=== PATIENT | female | born 1940 | race Two or more races ===

== ENCOUNTER 2017-01-16 16:15 | Emergency (ER) | payer MEDICARE, OTHER ==
[~2017-01-16] VITALS: Ht 170.2 cm; Wt 71.2 kg
[~2017-01-16 16:15] MED LIST: AZITHROMYCIN250 MG; CYMBALTA20 MG; CYMBALTA30 MG ORAL; DEXILANT60 MG ORAL; DILTIAZEM 24HR120 M1; FLONASE1 SPRAYS; PHENAZOPYRIDIN100 MG ORAL; RANITIDINE HCL150 M2; RESTASIS1 EACH BOTH EYES; ROPINIROLE HCL3 MG; TENORMIN100 MG ORAL; TOVIAZ8 MG PO; ZOLPIDEM TARTRAT5 MG
[2017-01-16 16:31] VITALS: BP 135/73
[2017-01-16] MEDS ORDERED: Lidocaine 1% 10mg/ml/Epi 0.005mg/ml 30ml vial INJ ONE (17:30)
--- NOTE | 2017-01-16 18:17 | Emergency Room Report ---
History of Present Illness General Chief Complaint: Skin Rash/Abscess Source: Patient Present Illness HPI 76 Yo female presents to the ED c/o pain, swelling, and erythema of right hip x 1 week. progressive in size. pt rates 10/10 localized tenderness. She denies fevers, chills, immunocompromise, trauma or fall. Patient has not taken any medication for her symptoms daughter has been washing daily with hibicleanse and applying antibiotic ointment. Erythema has continued to progress, and there is purulent drainage seeping through the skin. Denies CP, Palpitations, LOC, AMS, dizziness, Changes in Vision, Sensation, paresthesias, or a sudden severe headache. Allergies: Coded Allergies: HYDROCODONE (Unverified Allergy, Intermediate, 11/05/13) CODEINE (Verified Allergy, Mild, HIVES, 03/29/11) SULFAMETHOXAZOLE (Verified Allergy, Mild, 06/21/10) TRIMETHOPRIM (Verified Allergy, Mild, 06/21/10) METHOCARBAMOL (Verified Allergy, Unknown, 01/16/17) ASPIRIN (Verified Adverse Reaction, Unknown, UPSET STOMACH, 05/16/11) Patient History Past Medical History: see triage record Past Surgical History: none Pertinent Family History: none Now: No Immunizations: UTD Reviewed Nursing Documentation: PMH: Agreed, PSxH: Agreed Nursing Documentation-PMH Past Medical History: No History, Except For Hx Cardiac Problems: Yes Hx Hypertension: Yes Hx Cancer: Yes Hx Gastrointestinal Problems: No Hx Neurological Problems: No Review of Systems All Other Systems: negative except mentioned in HPI Physical Exam Vital Signs Date Time Temp Pulse Resp B/P Pulse Ox O2 Delivery O2 Flow Rate FiO2 01/16/17 16:31 97.9 79 16 135/73 97 Room Air Sp02 EP Interpretation: reviewed, normal General Appearance: no apparent distress, alert, GCS 15, non-toxic Head: normocephalic, atraumatic Eyes: bilateral eye PERRL, bilateral eye normal inspection ENT: hearing grossly normal, normal pharynx, no angioedema, normal voice Neck: full range of motion, supple/symm/no masses Respiratory: chest non-tender, lungs clear, normal breath sounds, speaking full sentences Cardiovascular #1: regular rate, rhythm, no edema Musculoskeletal: back normal, gait/station normal, normal range of motion, non- tender Neurologic: alert, oriented x3, responsive, motor strength/tone normal, sensory intact, speech normal Psychiatric: judgement/insight normal, memory normal, mood/affect normal Skin: no rash, warm/dry, well hydrated, other - 3cm abscess of right hip with surrounding erythema Lymphatic: no adenopathy Procedures Incision and Drainage Incision and Drainage : Consent: Verbal Site: right thigh Blade Size: 11 I & D Procedure: betadine prep, sterile dressing applied, gauze wick placed Wound Location: lower extremity - right thigh Wound's Depth, Shape: into muscle Wound Length (cm): 1 Wound Explored: contaminated - purulent drainage expressed Anesthesia: Lidocaine w/ Epi Volume Anesthetic (ccs): 2 Splint Applied?: No Sling Applied?: No Patient Tolerated: Well Complications: None Progress wound packing was placed. Medical Decision Making PA Attestation Dr. Mendieta is my supervising Physician whom patient management has been discussed with. Diagnostic Impression: Primary Impression: Abscess or cellulitis of hip ER Course Pt. presents to the ED c/o pain, swelling, and erythema of right hip x 1 week. progressive in size. Ddx considered but are not limited to cellulitis, abscess, cystic acne, necrotizing fasciitis, insect bite. Vital signs: are WNL, pt. is afebrile H&PE are most consistent with 3cm abscess of right hip with surrounding erythema ORDERS: none required at this time, the diagnosis is clinical ED INTERVENTIONS: -I & D. -wound packing placed. - 100mg Doxy-- pt has multiple allergies to abx. -d/w pt. and responsible alliance party to return in 48-72 hours for packing removal, return sooner with worsening or new symptoms. DISCHARGE: At this time pt. is stable for d/c to home. Will provide printed patient care instructions, and any necessary prescriptions. Care plan and follow up instructions have been discussed with the patient prior to discharge. Last Vital Signs Date Time Temp Pulse Resp B/P Pulse Ox O2 Delivery O2 Flow Rate FiO2 01/16/17 16:31 97.9 79 16 135/73 97 Room Air Disposition: HOME, SELF-CARE Condition: Stable Scripts Doxycycline Hyclate* (VIBRAMYCIN*) 100 Mg Capsule 100 MG ORAL EVERY 12 HOURS for 7 Days, #14 CAP 0 Refills Prov: Orin Jaramillo 01/16/17 Referrals: KELVIN BOBO M.D. (PCP) Patient Instructions: Abscess Additional Instructions: Take medications as directed. RETURN for wound Check and packing removal in 48-72 hours Follow up with PCP in 3-5 days Return sooner to ED if new symptoms occur, or current symptoms become worse. - Please note that this Emergency Department Report was dictated using [employer]director retail brand development technology software, occasionally this can lead to erroneous entry secondary to interpretation by the dictation equipment. Orin Jaramillo January 16, 2017 18:17
[2017-01-16] MEDS ORDERED: VIBRAMYCIN100 MG ORAL (18:18)
[2017-01-16 18:35] VITALS: BP 129/71
== END 2017-01-16 18:39 | disposition home or self-care (01) ==
LOC: EMR 17:25
DX: L02.415 Cutaneous abscess of right lower limb (principal); L03.115 Cellulitis of right lower limb; I10 Essential (primary) hypertension; Z88.6 Allergy status to analgesic agent; Z88.2 Allergy status to sulfonamides; Z85.9 Personal history of malignant neoplasm, unspecified
CPT/HCPCS: 10060

== ENCOUNTER 2017-01-18 13:11 | Emergency (ER) | payer MEDICARE, OTHER ==
[~2017-01-18] VITALS: Ht 170.2 cm; Wt 71.2 kg
[~2017-01-18 13:11] MED LIST changes: +VIBRAMYCIN100 MG ORAL
[2017-01-18] MEDS ORDERED: Bacitracin Oint UD TOPIC ONE (14:15)
[2017-01-18] MEDS ORDERED: BACITRACIN15 GM TOPIC (14:23)
[2017-01-18 14:49] VITALS: BP 139/86
[2017-01-18 14:51] VITALS: BP 139/86
--- NOTE | 2017-01-18 16:36 | Emergency Room Report ---
History of Present Illness General Chief Complaint: Wound Recheck/Suture Removal Source: Patient, Family Member Present Illness HPI The patient is a 76-year-old female presenting for wound recheck and packing removal. The patient had an incision and drainage of an abscess to the right leg 2 days prior in this emergency department. Packing was placed and the patient was placed on antibiotics which she has been taking. Pain to the areas described as a 5/10 dull ache and is worse with touch. She denies radiating pain. She denies any discharge from the area. She denies any other symptoms including F, chills, SOB, CP, rash Allergies: Coded Allergies: HYDROCODONE (Unverified Allergy, Intermediate, 11/05/13) CODEINE (Verified Allergy, Mild, HIVES, 03/29/11) SULFAMETHOXAZOLE (Verified Allergy, Mild, 06/21/10) TRIMETHOPRIM (Verified Allergy, Mild, 06/21/10) METHOCARBAMOL (Verified Allergy, Unknown, 01/16/17) ASPIRIN (Verified Adverse Reaction, Unknown, UPSET STOMACH, 05/16/11) Patient History Past Medical History: see triage record Pertinent Family History: none Last Menstrual Period: na Reviewed Nursing Documentation: PMH: Agreed, PSxH: Agreed Nursing Documentation-PMH Past Medical History: No History, Except For Hx Cardiac Problems: Yes Hx Hypertension: Yes Hx Cancer: Yes - breast dual masectomy Hx Gastrointestinal Problems: No Hx Neurological Problems: No Review of Systems All Other Systems: negative except mentioned in HPI Physical Exam Vital Signs Date Time Temp Pulse Resp B/P Pulse Ox O2 Delivery O2 Flow Rate FiO2 01/18/17 13:35 98.2 75 18 158/90 98 Room Air Sp02 EP Interpretation: reviewed, normal General Appearance: no apparent distress, alert, GCS 15, non-toxic Head: normocephalic, atraumatic Eyes: bilateral eye PERRL, bilateral eye normal inspection ENT: hearing grossly normal, normal pharynx, no angioedema, normal voice Neck: full range of motion, supple/symm/no masses Respiratory: chest non-tender, lungs clear, normal breath sounds, speaking full sentences Musculoskeletal: back normal, gait/station normal, normal range of motion, non- tender Neurologic: alert, oriented x3, responsive, motor strength/tone normal, sensory intact, speech normal Psychiatric: judgement/insight normal, memory normal, mood/affect normal, no suicidal/homicidal ideation Skin: well hydrated, other - R upper lateral leg: abscess has packing in place. No DC. No bleeding. Lymphatic: no adenopathy Medical Decision Making PA Attestation Dr. Jesus is my supervising physician. Patient management was discussed with my supervising physician Diagnostic Impression: Primary Impression: Abscess packing removal Additional Impression: Abscess ER Course The patient is a 76-year-old female presenting for wound recheck and packing removal. Differential diagnoses considered but not limited to: abscess, cellulitis, wound infection PE: vitals WNL. NAD R upper lateral leg: abscess has packing in place. No DC. No bleeding. TTP. packing removed without any complications. No bleeding. Abscess is flushed with NS and cleaned. Bacitracin applied with new dressing. The patient will followup with PMD and ER precautions are given Last Vital Signs Date Time Temp Pulse Resp B/P Pulse Ox O2 Delivery O2 Flow Rate FiO2 01/18/17 14:51 98.3 73 20 139/86 97 Room Air Status: improved Disposition: HOME, SELF-CARE Condition: Improved Scripts Bacitracin (Bacitracin) 28.4 Gm Oint...g. 1 APPLIC TOPIC THREE TIMES A DAY, #28 GM Prov: STUART HICKS 01/18/17 Patient Instructions: Abscess, Wound Check Additional Instructions: I discussed my findings with the patient. All questions and concerns have been answered. Treatment and medication compliance have been addressed. I advised the patient that they need to follow up with PMD in 3-5 days. Return to ED if symptoms worsen, new symptoms arise, or if needed for any reason. Patient verbalized understanding of discharge instructions. STUART HICKS January 18, 2017 16:36
== END 2017-01-18 14:51 | disposition home or self-care (01) ==
LOC: EMR 14:04
DX: L02.415 Cutaneous abscess of right lower limb (principal); Z48.01 Encounter for change or removal of surgical wound dressing; I10 Essential (primary) hypertension; Z85.3 Personal history of malignant neoplasm of breast; Z90.13 Acquired absence of bilateral breasts and nipples; Z88.6 Allergy status to analgesic agent; Z88.2 Allergy status to sulfonamides
CPT/HCPCS: 99283

== ENCOUNTER → 2018-09-29 | Emergency (ER) | payer MEDICARE, OTHER ==
[~2018-09-29] VITALS: Ht 167.6 cm; Wt 61.2 kg
[~2018-09-29] MED LIST changes: +Atenolol 25mg tab ORAL ONE; +BACITRACIN15 GM TOPIC; +Tylenol #3 tab (300mg/30mg) ORAL ONE
[2018-09-29 09:30] VITALS: BP 157/74
--- NOTE | 2018-09-29 09:38 | NUR ---
ED Nurse Note: Received report. Pt brought in by daughter from home in wheelchair d/t recent fall at 0830. Pt A&Ox4 but stated she was walking with walker when she tried to turn off the light switch and fell over on her left side hurting her face and left thumb on hand; reporting pain 10/10 in her head and neck as well. Pt's daughter also states she was just discharged from [facility] 2 days ago. Pt has dressing and stitches on left upper rib cage from chest tube and procedures performed at [facility]. Pt applied to tele monitor, VS taken and pt stable.
--- NOTE | 2018-09-29 09:44 | Emergency Room Report ---
History of Present Illness General Chief Complaint: Multiple Trauma/Fall Source: Patient, Medical Record Present Illness HPI Patient is a 78-year-old female who presented after a fall. Patient reports of increased pain to the left side of her face. Injury occurred just prior to arrival. Patient had recent surgery at the hospital. She denies any neck pain. She reports having some episodes of back pain. Patient had previous history of neck surgery as well as back surgery. She reported having prior knee surgery as well. Patient was followed by Dr. Carlos Nuñez for surgery.Patient had recent hospitalization after she developed a large pleural effusion. Patient subsequently had a pneumothorax. Patient was noted to have prior history of thrombocytopenia. She was noted to have a fall this morning. Patient denies loss of consciousness. She reports having a fall after her walker slipped. Patient was noted by her daughter to be immediately awake and alert. Patient's primary care physician is Dr. Delmi Guerrero. Allergies: Coded Allergies: HYDROCODONE (Unverified Allergy, Intermediate, 11/05/13) CODEINE (Verified Allergy, Mild, HIVES, 03/29/11) SULFAMETHOXAZOLE (Verified Allergy, Mild, 06/21/10) TRIMETHOPRIM (Verified Allergy, Mild, 06/21/10) METHOCARBAMOL (Verified Allergy, Unknown, 01/16/17) ASPIRIN (Verified Adverse Reaction, Unknown, UPSET STOMACH, 05/16/11) Patient History Past Medical History: see triage record Last Menstrual Period: none Now: No : 3 Para: 2 Reviewed Nursing Documentation: PMH: Agreed; PSxH: Agreed Nursing Documentation-PMH Hx Cardiac Problems: Yes Hx Hypertension: Yes Hx Cancer: Yes - breast dual masectomy Hx Gastrointestinal Problems: No History Of Psychiatric Problem: Yes Hx Neurological Problems: No Review of Systems All Other Systems: negative except mentioned in HPI Physical Exam Vital Signs Date Time Temp Pulse Resp B/P (MAP) Pulse Ox O2 Delivery O2 Flow Rate FiO2 09/29/18 09:30 97.2 73 18 157/74 98 Room Air Sp02 EP Interpretation: reviewed, normal General Appearance: normal inspection, alert, no apparent distress, GCS 15 Eyes: normal eye exam, PERRL, EOMI, lids + conjunctiva normal, globe intact ENT: normal ENT inspection, TMs + canals normal, oropharynx normal, no monroy signs, other - bruising to left side of face Neck: trach midline, no bony tend Respiratory: effort normal, no retractions, clear to auscultation, chest symmetrical, palpation of chest normal, speaking in full sentences Cardiovascular: regular rate, rhythm, no JVD Cardiovascular #2: 2+ radial (R), 2+ radial (L), 2+ dorsalis pedis (R), 2+ dorsalis pedis (L) Gastrointestinal: normal inspection, non-tender, non-distended, no rebound/ guarding, normal bowel sounds Genitourinary: normal inspection Musculoskeletal: normal ROM, non-tender, back normal Skin: no rash, no lacerations, normal palpation Lymphatic: normal inspection Neurologic: normal inspection, CN II-XII intact, oriented x3, sensory intact, motor strength/tone normal, normal speech Psychiatric: normal inspection, memory normal, mood normal, no suicidal/ homicidal ideation Medical Decision Making Diagnostic Impression: Primary Impression: Facial contusion Additional Impression: Pleural effusion Labs Test 09/29/18 10:00 White Blood Count 5.8 K/UL (4.8-10.8) Red Blood Count 2.96 M/UL (4.20-5.40) Hemoglobin 9.2 G/DL (12.0-16.0) Hematocrit 29.5 % (37.0-47.0) Mean Corpuscular Volume 100 FL (80-99) Mean Corpuscular Hemoglobin 31.3 PG (27.0-31.0) Mean Corpuscular Hemoglobin Concent 31.4 G/DL (32.0-36.0) Red Cell Distribution Width 15.3 % (11.6-14.8) Platelet Count 95 K/UL (150-450) Mean Platelet Volume 7.2 FL (6.5-10.1) Neutrophils (%) (Auto) % (45.0-75.0) Lymphocytes (%) (Auto) % (20.0-45.0) Monocytes (%) (Auto) % (1.0-10.0) Eosinophils (%) (Auto) % (0.0-3.0) Basophils (%) (Auto) % (0.0-2.0) Differential Total Cells Counted 100 Neutrophils % (Manual) 71 % (45-75) Lymphocytes % (Manual) 16 % (20-45) Monocytes % (Manual) 7 % (1-10) Eosinophils % (Manual) 4 % (0-3) Basophils % (Manual) 0 % (0-2) Myelocytes % 1 % (0-0) Band Neutrophils 1 % (0-8) Platelet Estimate Decreased Platelet Morphology Normal Anisocytosis 1+ Macrocytosis 1+ Prothrombin Time 10.1 SEC (9.30-11.50) Prothromb Time International Ratio 1.0 (0.9-1.1) Activated Partial Thromboplast Time 27 SEC (23-33) Sodium Level 138 MMOL/L (136-145) Potassium Level 4.2 MMOL/L (3.5-5.1) Chloride Level 104 MMOL/L (98-107) Carbon Dioxide Level 23 MMOL/L (21-32) Anion Gap 11 mmol/L (5-15) Blood Urea Nitrogen 31 mg/dL (7-18) Creatinine 1.6 MG/DL (0.55-1.30) Estimat Glomerular Filtration Rate mL/min (>60) Glucose Level 89 MG/DL (74-106) Calcium Level 9.0 MG/DL (8.5-10.1) Total Bilirubin 0.5 MG/DL (0.2-1.0) Aspartate Amino Transf (AST/SGOT) 24 U/L (15-37) Alanine Aminotransferase (ALT/SGPT) 22 U/L (12-78) Alkaline Phosphatase 84 U/L (46-116) Troponin I 0.000 ng/mL (0.000-0.056) Total Protein 7.5 G/DL (6.4-8.2) Albumin 3.3 G/DL (3.4-5.0) Globulin 4.2 g/dL Albumin/Globulin Ratio 0.8 (1.0-2.7) Last Vital Signs Date Time Temp Pulse Resp B/P (MAP) Pulse Ox O2 Delivery O2 Flow Rate FiO2 09/29/18 09:30 97.2 73 18 157/74 98 Room Air Status: improved Disposition: HOME, SELF-CARE Condition: Stable Betito Mendieta MD Sep 29, 2018 09:44
--- NOTE | 2018-09-29 10:07 | NUR ---
ED Nurse Note: Pt taken down to CT
[2018-09-29 10:20] LABS: HEMATOCRIT 29.5 % (37.0-47.0); HEMOGLOBIN 9.2 G/DL (12.0-16.0); MEAN CORPUSCULAR VOLUME 100 FL (80-99); PLATELET COUNT 95 K/UL (150-450); RED BLOOD COUNT 2.96 M/UL (4.20-5.40); RED CELL DISTRIBUTION WIDTH 15.3 % (11.6-14.8); WHITE BLOOD COUNT 5.8 K/UL (4.8-10.8)
[2018-09-29 10:30] VITALS: BP 176/80
[2018-09-29 10:35] LABS: ANION GAP 11 mmol/L (5-15); BLOOD UREA NITROGEN 31 mg/dL (7-18); CARBON DIOXIDE 23 MMOL/L (21-32); CHLORIDE 104 MMOL/L (98-107); CREATININE 1.6 MG/DL (0.55-1.30); POTASSIUM 4.2 MMOL/L (3.5-5.1); SODIUM 138 MMOL/L (136-145)
--- NOTE | 2018-09-29 10:35 | NUR ---
ED Nurse Note: Pt returned from CT.
[2018-09-29 10:42] LABS: ALANINE AMINOTRANSFERASE 22 U/L (12-78); ALBUMIN 3.3 G/DL (3.4-5.0); ALBUMIN/GLOBULIN RATIO 0.8 (1.0-2.7); ALKALINE PHOSPHATASE 84 U/L (46-116); ASPARTATE AMINO TRANSFERASE 24 U/L (15-37); BILIRUBIN,TOTAL 0.5 MG/DL (0.2-1.0)
--- NOTE | 2018-09-29 10:50 | Diagnostic Imaging Report ---
INDICATION: Shortness of breath COMPARISON: Chest x-ray dated 12/12/13 FINDINGS: Single frontal view demonstrates postoperative changes of the thoracic spine, grossly unchanged. New aortic arch to descending aortic stent. Stable left axillary surgical clips. New opacity in the left mid to lower lung zone. The visualized osseous structures are within normal limits. IMPRESSION: 1. New opacity in left mid to lower lung zone. 2. New aortic arch and descending aortic stent. 3. Stable postoperative changes of the thoracic spine and left axilla.
--- NOTE | 2018-09-29 11:10 | Diagnostic Imaging Report ---
LEFT HAND, Views INDICATION: Pain COMPARISON: None FINDINGS: 3 views of the left hand are obtained. Bony structures are intact. Bone mineralization is within normal limits. Joint spaces are preserved. Soft tissues within normal limits. No radio-opaque foreign bodies seen. IMPRESSION: No acute fracture.
--- NOTE | 2018-09-29 12:26 | NUR ---
ED Nurse Note: Tenormin was withheld at this time, pts BP 162/84, at the bedside talking to pt's family. Pt states pain is slowly getting better with pain medication. pt's family states that she took blood pressure medication metoprolol and hydralazine this morning. will cont monitor. pt on child monitor, vss.
--- NOTE | 2018-09-29 12:32 | NUR ---
ED Nurse Note: noted multiple brusing on BUE, daughter states she was at [facility] recently and it was from blood draw. Family aware.
--- NOTE | 2018-09-29 12:33 | Diagnostic Imaging Report ---
INDICATION: Pain TECHNIQUE: Multiple, contiguous 2.5 mm axial cuts of the brain are obtained from the posterior fossa to the cranial vault. Sagittal and coronal reformatted images provided. No IV contrast is administered. One or more of the following dose reduction techniques were used: automated exposure control, adjustment of the mA and/or kV according to patient size, use of iterative reconstruction technique. COMPARISON: CT Head dated 11/05/13 FINDINGS: No intracranial hemorrhage, abnormal intra- or extra-axial collections or parenchymal lesions are seen. There are involutional changes with prominence of the sulci, basal cisterns and ventricles. Scattered white matter hypoattenuations are present, likely from small vessel disease. The kirby-white differentiation is preserved. No evidence of mass effect, midline shift, or edema. The osseous structures are unremarkable. The visualized portions of the paranasal sinuses are clear. Atherosclerotic vascular disease. Status post bilateral lens surgery. IMPRESSION: 1. No acute intracranial process. 2. Involutional changes with small vessel disease. CTDI: 70.38 mGy DLP: 1312.53 mGycm
--- NOTE | 2018-09-29 12:37 | NUR ---
ED Nurse Note: addendum, pt has contusion on left orbital area, left thumb from fall.
--- NOTE | 2018-09-29 12:46 | Diagnostic Imaging Report ---
INDICATION: Pain TECHNIQUE: Multiple, contiguous 2.5 mm axial cuts of the cervical spine are obtained from the skull base to the thoracic inlet. Sagittal and coronal images provided. No IV contrast is administered. One or more of the following dose reduction techniques were used: automated exposure control, adjustment of the mA and/or kV according to patient size, use of iterative reconstruction technique. COMPARISON: CT cervical spine dated 11/05/13 FINDINGS: No fracture is noted. Stable 2-3 mm of anterolisthesis of C3 on C4. 2-3 mm of retrolisthesis of C5 on C6, grossly unchanged. The vertebral body heights and alignment are preserved. No prevertebral soft tissue swelling. Unchanged moderate to severe disc height loss at C5-C6 and C6-C7 with moderate anterior osteophytes. New severe disc height loss at C4-C5. Bilateral facet arthropathy. Degenerative changes at the atlantodental interval. Note is made of multilevel cervical spondylosis with varying degrees of central canal and foramina stenoses. Atherosclerotic vascular disease. Partially may opacity in the left lung apex with a stent seen, correlation can be obtained with dedicated CT of the chest for further evaluation if clinically indicated. IMPRESSION: 1. No cervical fractures. 2. Cervical spondylosis with varying degrees of central canal and foramina stenoses. 3. Partially may opacity in the left lung apex with a stent seen, correlation can be obtained with dedicated CT of the chest for further evaluation if clinically indicated. CTDI: 14.82 mGy DLP: 306.88 mGycm
--- NOTE | 2018-09-29 12:50 | Diagnostic Imaging Report ---
INDICATION: Pain TECHNIQUE: Multiple, contiguous 2.5 mm axial cuts of the paranasal sinuses are obtained. Sagittal and coronal reformatted images are provided. No IV contrast is administered. One or more of the following dose reduction techniques were used: automated exposure control, adjustment of the mA and/or kV according to patient size, use of iterative reconstruction technique. COMPARISON: None FINDINGS: Slightly limited by motion. No acute fracture. Mild left sphenoid sinus mucosal thickening. Otherwise, the maxillary, ethmoid, sphenoid and frontal sinuses are clear bilaterally. There is no mucoperiosteal thickening or air-fluid levels. The osteomeatal units are well aerated bilaterally. The turbinates are normal. The nasal septum is midline. No bony erosions are seen. IMPRESSION: No acute fracture. CTDI: 28.19 mGy DLP: 599.07 mGycm
--- NOTE | 2018-09-30 15:27 | Cardiology Report ---
APPROVED REPORT EKG Measurement Heart [id number] MD [id number] Normal sinus rhythm Normal ECG
== END | disposition home or self-care (01) ==
LOC: EMR 10:00
DX: S00.83XA Contusion of other part of head, initial encounter (principal); W01.0XXA Fall on same level from slipping, tripping and stumbling without subsequent striking against object, initial encounter; Y92.89 Other specified places as the place of occurrence of the external cause; J90 Pleural effusion, not elsewhere classified; I10 Essential (primary) hypertension; Z88.2 Allergy status to sulfonamides; Z88.8 Allergy status to other drugs, medicaments and biological substances; Z88.6 Allergy status to analgesic agent; Z88.5 Allergy status to narcotic agent; Z90.10 Acquired absence of unspecified breast and nipple; Z85.3 Personal history of malignant neoplasm of breast
CPT/HCPCS: 36415; 70450; 70486; 71045; 72125; 80053; 84484; 85007; 85025; 85610; 85730; 93005; 99284